=== PATIENT | female | born 1960 | race Caucasian/White ===

== ENCOUNTER 2020-01-18 17:59 | Emergency (ER) | payer MEDICARE ==
[~2020-01-18] VITALS: Ht 165.1 cm; Wt 106.4 kg
[~2020-01-18 17:59] MED LIST: CLARITIN 10 MG10 MG PO; DULCOLAX5 MG PO; FLUTICASONE PRO16 GM NASAL; HYDROCODONE-APA1 TAB PO; LASIX20 MG PO; LEVAQUIN500 MG PO; LIORESAL 10 MG10 MG PO; MEDI-NATURAL8.6 MG PO; NEURONTIN 400400 MG PO; SYNTHROID175 MCG PO; WELLBUTRIN100 MG PO; XANAX2 MG PO; ZYPREXA5 MG PO
[2020-01-18 18:02] VITALS: Ht 165.1 cm; Wt 106.4 kg
[2020-01-18 21:44] LABS: BASOPHILS 0.3 % (0-2); EOSINOPHILS 2.2 % (0-7); HEMATOCRIT 27.3 % (36.0-48.0); HEMOGLOBIN 8.9 g/dL (12-16); IMMATURE GRANULOCYTES 0.5 % (0-5); LYMPHOCYTES 9.1 % (15-50); MCH 30.3 pg (26.0-34.0); MCHC 32.6 g/dL (31.0-37.0); MCV 92.9 fL (80.0-100.0); MEAN PLATELET VOLUME 9.1 fL (7.4-10.4); NEUTROPHILS 76.9 % (40-80); PLATELET COUNT 280 10x3/uL (130-400); RBC 2.94 10x6/uL (4.00-5.40); RDW 14.6 % (11.5-14.5); WBC 11.1 10x3/uL (4.8-10.8)
[2020-01-18 21:55] LABS: ANION GAP 10.9 mmol/L (8-16); CALCIUM 8.6 mg/dL (8.5-10.1); CARBON DIOXIDE 28.8 mmol/L (21.0-32.0); CREATININE - SERUM 1.2 mg/dL (0.6-1.3); POTASSIUM - SERUM 4.7 mmol/L (3.5-5.1)
[2020-01-18 22:03] LABS: ALBUMIN 2.5 g/dL (3.4-5.0); BILIRUBIN - TOTAL 0.6 mg/dL (0.2-1.3); PROTEIN - SERUM 6.7 g/dL (6.4-8.2)
[2020-01-18] MEDS ORDERED: MACROBID100 MG PO (22:50)
[2020-01-18] MEDS ORDERED: KEFLEX500 MG PO (22:50)
[2020-01-18 23:41] VITALS: BP 118/52
== END 2020-01-18 23:41 | disposition home or self-care (01) ==
LOC: D.ER 17:59
PROVIDERS: Family Medicine
DX: M25.551 Pain in right hip (principal); L76.82 Other postprocedural complications of skin and subcutaneous tissue; N39.0 Urinary tract infection, site not specified; Z86.73 Personal history of transient ischemic attack (TIA), and cerebral infarction without residual deficits; E07.9 Disorder of thyroid, unspecified; I10 Essential (primary) hypertension; K21.9 Gastro-esophageal reflux disease without esophagitis